=== PATIENT | female | born 1975 | race Caucasian/White ===

== ENCOUNTER → 2016-12-26 | Emergency (ER) | payer OTHER ==
[~2016-12-26] VITALS: Wt 83.0 kg
[2016-12-26 17:09] LABS: ABNORMAL IP MESSAGE 1; HEMATOCRIT 30.1 % (37.0-47.0); HEMOGLOBIN 8.5 g/dl (12.0-16.0); MEAN CORPUSCULAR HEMOGLOBIN 21.1 pg (29.0-33.0); MEAN CORPUSCULAR HGB CONC 28.2 g/dl (32.0-37.0); MEAN CORPUSCULAR VOLUME 74.7 fl (82.0-101.0); MEAN PLATELET VOLUME 11.7 fl (7.4-10.4); PLATELET COUNT 288 10^3/UL (140-415); RED BLOOD COUNT 4.03 10^6/ul (4.20-5.40); RED CELL DISTRIBUTION WIDTH 23.4 % (11.5-14.5); WHITE BLOOD COUNT 7.8 10^3/ul (4.8-10.8)
[2016-12-26 17:10] LABS: ADD SCAN DIFF NO
[2016-12-26 17:19] LABS: ADD UMIC YES; UR ASCORBIC ACID NEGATIVE (NEGATIVE); UR BILIRUBIN (Dip) NEGATIVE (NEGATIVE); UR BLOOD (Dip) 2+ mg/dL (NEGATIVE); UR CLARITY CLEAR (CLEAR); UR COLOR YELLOW (YELLOW); UR GLUCOSE (Dip) NEGATIVE (NEGATIVE); UR KETONES (Dip) NEGATIVE (NEGATIVE); UR LEUKOCYTE ESTERASE (Dip) NEGATIVE Leu/ul (NEGATIVE); UR MUCUS FEW /HPF (NONE SEEN); UR NITRITE (Dip) NEGATIVE (NEGATIVE); UR RBC 3 /HPF (0-5); UR SPECIFIC GRAVITY (Dip) 1.023 (1.003-1.030); UR TOTAL PROTEIN (Dip) NEGATIVE (NEGATIVE); UR UROBILINOGEN (Dip) 2+ mg/dL (NEGATIVE)
--- NOTE | 2016-12-26 17:27 | RADRPT ---
PROCEDURE: OBSTETRICAL ULTRASOUND WITH ENDOVAGINAL IMAGES CLINICAL INDICATION: Vaginal Bleed () TECHNIQUE: Multiple sonographic images of the pelvis were obtained utilizing a transabdominal and endovaginal technique. The images were reviewed on a PACS workstation. COMPARISON: None. LMP: 11/10/2016 Gestational age by LMP: 6 weeks, 4 days FINDINGS: A possible intrauterine gestational sac is identified with mean sac diameter of 0.70 cm which would be consistent with a gestational age of 5 weeks, 2 days and an estimated date of delivery of 018 . No yolk sac or pole is identified within it. Bilateral ovaries are not visualized. There are no abnormal adnexal masses. No significant pelvic free fluid is identified. IMPRESSION: A possible intrauterine gestational sac is identified which would be consistent with a gestational a ge of 5 weeks, 2 days . No yolk sac or pole is identified within it. Findings may be due to a n early intrauterine although an ectopic is not excluded. Short-term follow-up ultrasound and serial Beta HCG measurements are recommended for further evaluation. Bilateral ovaries are not visualized. There are no abnormal adnexal masses. RPTAT: EE Physician [place] Date Time Electronically viewed and signed by Physician [place] on 12/26/2016 17:26 /
[2016-12-26 17:33] LABS: ALBUMIN 4.5 g/dl (3.3-4.9); ALBUMIN/GLOBULIN RATIO 1.66; BILIRUBIN,INDIRECT 0.3 mg/dl (0-1.1); BILIRUBIN,TOTAL 0.3 mg/dl (0.2-1.3); CALCIUM 8.5 mg/dl (8.4-10.2); CREATININE 0.72 mg/dl (0.44-1.00); TOTAL PROTEIN 7.2 g/dl (6.1-8.1)
[2016-12-26 17:50] LABS: ANISOCYTOSIS 1+; MONOCYTE # 0.2 10^3/ul (0.3-0.9); NEUTROPHIL # 5.5 10^3/ul (1.6-7.5)
[2016-12-26 17:51] LABS: HYPOCHROMASIA 2+
--- NOTE | 2016-12-26 18:11 | ERD ---
ER Documentation Chief Complaint Date/Time DATE: 12/26/16 TIME: 18:08 Chief Complaint VAG BLEEDING, 6 WKS PG, HAD ULTRASOUND YESTERDAY THEN BLEEDING STARTED HPI This patient is a 41-year-old female who is approximately 6 weeks . She has a history of chronic anemia and states that earlier this week on Thursday she was admitted at [facility] for anemia. At that time she states that her hemoglobin was 6.8 and then she got 2 units and it went to 9 and when she was discharged it was 8 on Thursday. She has some lower pelvic cramping and she states she has some mild spotting on the paper when she wipes. She admits to nausea and vomiting. No diarrhea. No fever. She does not have OB doctor. ROS All systems reviewed and are negative except as per history of present illness. Allergies Allergies: Coded Allergies: Nsaids (Verified Allergy, Unknown, 08/18/06) PMhx/Soc Medical and Surgical Hx: pt denies Medical Hx, pt denies Surgical Hx Hx Alcohol Use: No Hx Substance Use: No Hx Tobacco Use: No FmHx Family History: No diabetes Physical Exam Vitals Vital Signs Date Time Temp Pulse Resp B/P Pulse Ox O2 Delivery O2 Flow Rate FiO2 12/26/16 16:16 99.6 84 18 121/57 99 Physical Exam General: well developed, well nourished, alert, nontoxic, no distress, pale Head: normocephalic, atraumatic Eyes: PERRL, normal conjunctiva Neck: Supple, nontender, no lymphadenopathy, no midline tenderness Respiratory: Clear to auscaultation bilaterally, speaks in full sentences, no use of accesory muscles or labored breathing, no rales, ronchi, or wheezing Cardiovascular: RRR, No murmurs GI: soft, non tender, non distended, negative murphys sign, negative mcburneys point tenderness, no cva tenderness bilaterally, no rebound or guarding Back: no midline tenderness, no step offs or bony abnormalities, sensation to light touch in tact Result Diagram: 12/26/16 1655 12/26/16 1655 Results 24 hrs Laboratory Tests Test 12/26/16 16:55 White Blood Count 7.810^3/ul Red Blood Count 4.0310^6/ul Hemoglobin 8.5g/dl Hematocrit 30.1% Mean Corpuscular Volume 74.7fl Mean Corpuscular Hemoglobin 21.1pg Mean Corpuscular Hemoglobin Concent 28.2g/dl Red Cell Distribution Width 23.4% Platelet Count 39340^3/UL Mean Platelet Volume 11.7fl Neutrophils % 71.0% Lymphocytes % 26.0% Monocytes % 3.0% Neutrophils # 5.510^3/ul Lymphocytes # 2.010^3/ul Monocytes # 0.210^3/ul Hypochromasia 2+ Anisocytosis 1+ Urine Color YELLOW Urine Clarity CLEAR Urine pH 5.0 Urine Specific [place] 1.023 Urine Ketones NEGATIVEmg/dL Urine Nitrite NEGATIVEmg/dL Urine Bilirubin NEGATIVEmg/dL Urine Urobilinogen 2+mg/dL Urine Leukocyte Esterase NEGATIVELeu/ul Urine Microscopic RBC 3/HPF Urine Microscopic WBC 2/HPF Urine Mucus FEW/HPF Urine Hemoglobin 2+mg/dL Urine Glucose NEGATIVEmg/dL Urine Total Protein NEGATIVEmg/dl Sodium Level 138mmol/L Potassium Level 4.0mmol/L Chloride Level 108mmol/L Carbon Dioxide Level 20mmol/L Anion Gap 14 Blood Urea Nitrogen 12mg/dl Creatinine 0.72mg/dl Glucose Level 54mg/dl Calcium Level 8.5mg/dl Total Bilirubin 0.3mg/dl Direct Bilirubin 0.00mg/dl Indirect Bilirubin 0.3mg/dl Aspartate Amino Transf (AST/SGOT) 17IU/L Alanine Aminotransferase (ALT/SGPT) 29IU/L Alkaline Phosphatase 75IU/L Total Protein 7.2g/dl Albumin 4.5g/dl Globulin 2.70g/dl Albumin/Globulin Ratio 1.66 Beta HCG, Quantitative 4073.3mIU/ml Procedures/[facility] 41-year-[facility] female has a history of chronic anemia. She is . Today her hemoglobin is 8.5 and she states this is good for her as she is usually running in the 6's. Her beta hCG per the patient on Thursday was 3317, today was 4073. Her ultrasound showed a possible intrauterine gestational sac consistent with gestational age of 5 weeks 2 days however no yolk sac or pole is identified within it. This may be an early intrauterine although ectopic cannot be excluded. I reviewed this case with Dr. Ny who recommended I speak to the labor wrist telecommunications network engineer and I spoke to Dr. Foroohar regarding the case and he explained the patient is suitable for outpatient management but needs to get a follow-up examination in 2-3 days. Patient understands that she is to return in 2-3 days she was given copies of her labs and ultrasound report. Recommended this patient follow up with her primary care doctor within 48 hours or return to the emergency room for any worsening of symptoms. However this time I do believe there is suitable for outpatient management. I answered all their questions and they agreed with the plan and were discharged home. Departure Diagnosis: Primary Impression: Chronic anemia Additional Impression: Threatened Condition: Stable Patient Instructions: Anemia During , Possible Miscarriage ( Threatened ) Additional Instructions: Call your primary care doctor TOMORROW for an appointment during the next 1-2 days.See the doctor sooner or return here if your condition worsens before your appointment time. Return to this facility in 2 days for follow up [facility] [place] check JOYA PHILLIPS PA-C Dec 26, 2016 18:11
[2016-12-26 18:30] VITALS: BP 110/58; PULSE 85; RESP 18; TEMP 99.6
== END | disposition home or self-care (01) ==
LOC: FTE 16:12
DX: O99.011 Anemia complicating pregnancy, first trimester (principal); D64.9 Anemia, unspecified; O20.0 Threatened abortion; Z3A.01 Less than 8 weeks gestation of pregnancy
CPT/HCPCS: 36415; 76801; 80053; 81001; 84702; 85025; 86900; 86901